=== PATIENT | male | born 1935 | race Caucasian/White ===

== ENCOUNTER → 2016-10-02 | Outpatient (CLI) | payer OTHER ==
--- NOTE | 2016-10-02 10:11 | DIAGNOSTIC IMAGING REPORT ---
LUMBAR SPINE 5 VIEWS HISTORY: Pain LUMBAR RADICULOPATHY COMPARISON: None. FINDINGS: There is no fracture. No subluxation. Moderate degenerative disc change throughout. Moderate reactive osteophytic changes throughout. IMPRESSION: No fracture or subluxation within the lumbar spine. Moderate degenerative disc change throughout the entire lumbar region. Electronically signed by: Juan Manuel Moore M.D. 10/02/2016 10:10 AM Dictated Date/Time: 10/02/2016 10:08 AM
== END | disposition home or self-care (01) ==
LOC: C.RAD 09:43
PROVIDERS: ATTEND Nurse Practitioner Family
DX: M54.16 Radiculopathy, lumbar region (principal)

== ENCOUNTER → 2017-02-02 | Outpatient (CLI) | payer OTHER ==
[2017-02-02 17:12] LABS: BLOOD UREA NITROGEN 16 mg/dl (7-18); BUN/CREATININE RATIO 19.2 (10-20); CREATININE 0.86 mg/dl (0.60-1.40)
== END | disposition home or self-care (01) ==
LOC: C.LABBC 15:26
PROVIDERS: ATTEND Urology
DX: N40.0 Benign prostatic hyperplasia without lower urinary tract symptoms (principal)